=== PATIENT | female | born 1960 | race Caucasian/White ===

== ENCOUNTER → 2017-01-24 | Outpatient (CLI) | payer BC | LOC: RT 13:15 | DX: J45.909 Unspecified asthma, uncomplicated (principal) | CPT/HCPCS: 94010 ==

== ENCOUNTER → 2021-01-27 | Outpatient (CLI) | payer BC | LOC: EXRD 10:00 | DX: K76.0 Fatty (change of) liver, not elsewhere classified (principal); E04.2 Nontoxic multinodular goiter; K76.89 Other specified diseases of liver; Z90.49 Acquired absence of other specified parts of digestive tract | CPT/HCPCS: 76536; 76705 ==

== ENCOUNTER → 2021-02-02 | Outpatient (CLI) | payer BC | LOC: EXRD 10:35 | DX: M25.552 Pain in left hip (principal); M25.562 Pain in left knee; M51.16 Intervertebral disc disorders with radiculopathy, lumbar region; M25.462 Effusion, left knee | CPT/HCPCS: 72100; 73502; 73560 ==

== ENCOUNTER → 2022-03-02 | Outpatient (CLI) | payer BC | LOC: EXRD 02-09 13:30 | DX: E04.1 Nontoxic single thyroid nodule (principal) | CPT/HCPCS: 76536 ==